=== PATIENT | female | born 1960 | race Two or more races ===

== ENCOUNTER 2017-09-25 13:35 | Outpatient (CLI) | payer OTHER ==
[~2017-09-25 13:35] MED LIST: NATALIZUMAB; ZOLOFT50 MG
== END 2017-09-25 13:52 | disposition home or self-care (01) ==
LOC: RAD 501 13:35
DX: M25.561 Pain in right knee (principal); M25.562 Pain in left knee; M79.604 Pain in right leg; M54.5 Low back pain

== ENCOUNTER 2017-12-21 10:13 | Outpatient (CLI) | payer OTHER | END 2017-12-21 10:15 | disposition home or self-care (01) | LOC: SONOGRAMA 10:13 | DX: E04.1 Nontoxic single thyroid nodule (principal) ==

== ENCOUNTER 2018-01-22 15:01 | Outpatient (CLI) | payer OTHER | END 2018-01-22 16:14 | disposition home or self-care (01) | LOC: RAD 501 15:01 | DX: M17.11 Unilateral primary osteoarthritis, right knee (principal); M25.561 Pain in right knee; M25.551 Pain in right hip ==

== ENCOUNTER 2018-04-11 11:31 | Outpatient (CLI) | payer OTHER | END 2018-04-11 12:11 | disposition home or self-care (01) | LOC: RAD 501 11:31 | DX: Z76.89 Persons encountering health services in other specified circumstances (principal); M17.11 Unilateral primary osteoarthritis, right knee; M79.604 Pain in right leg; M79.651 Pain in right thigh ==

== ENCOUNTER 2018-06-15 10:00 | Inpatient (IN) | payer OTHER ==
[~2018-06-15] VITALS: Ht 152.4 cm; Wt 5.0 kg
[2018-06-15] MEDS ORDERED: LEMTRADA12 MG/1.2 (12:58)
[2018-06-22] MEDS ORDERED: XARELTO10 MG PO (12:48)
[2018-06-22] MEDS ORDERED: ULTRACET PO (12:51)
== END 2018-06-22 14:35 | disposition home or self-care (01) | DRG 470 ==
LOC: SURH 06-19 09:45 → O/R 06-19 12:14 → SURG 06-20 15:06
PROVIDERS: Orthopaedic Surgery
PROC: 0SH Lower Joints, Insertion (ICD-10-PCS; 2018-06-19)
PROC: 0SRC0J9 Replacement of Right Knee Joint with Synthetic Substitute, Cemented, Open Approach (ICD-10-PCS; principal; 2018-06-19 09:45)
DX: M17.11 Unilateral primary osteoarthritis, right knee (principal); D62 Acute posthemorrhagic anemia; G35 Multiple sclerosis; Z79.52 Long term (current) use of systemic steroids

== ENCOUNTER 2018-06-18 07:51 | Outpatient (CLI) | payer OTHER ==
[~2018-06-18 07:51] MED LIST changes: +LEMTRADA12 MG/1.2
== END 2018-06-18 08:42 | disposition home or self-care (01) ==
LOC: LAB 07:51
DX: D64.89 Other specified anemias (principal)

== ENCOUNTER 2018-10-17 11:12 | Outpatient (CLI) | payer OTHER ==
[~2018-10-17 11:12] MED LIST changes: +ULTRACET PO; +XARELTO10 MG PO
== END 2018-10-17 11:32 | disposition home or self-care (01) ==
LOC: RAD 501 11:12
DX: M41.25 Other idiopathic scoliosis, thoracolumbar region (principal)

== ENCOUNTER 2018-11-23 08:35 | Day surgery (SDC) | payer OTHER ==
[~2018-11-23 08:35] MED LIST changes: +NEURONTIN300 MG PO; +XANAX0.25 MG PO; +ZOLOFT100 MG PO
== END 2018-11-23 17:30 | disposition home or self-care (01) ==
LOC: CIR.AMB 08:35
DX: M24.561 Contracture, right knee (principal); M24.552 Contracture, left hip; M24.551 Contracture, right hip

== ENCOUNTER 2019-09-09 10:23 | Outpatient (CLI) | payer OTHER | END 2019-09-09 14:58 | disposition home or self-care (01) | LOC: LAB 10:23 | DX: E55.9 Vitamin D deficiency, unspecified (principal); M85.88 Other specified disorders of bone density and structure, other site; E21.2 Other hyperparathyroidism; E88.89 Other specified metabolic disorders; M81.8 Other osteoporosis without current pathological fracture; E56.1 Deficiency of vitamin K; Z01.812 Encounter for preprocedural laboratory examination; Z01.810 Encounter for preprocedural cardiovascular examination; Z01.811 Encounter for preprocedural respiratory examination ==

== ENCOUNTER 2021-08-16 14:10 | Outpatient (CLI) | payer OTHER | END 2021-08-16 14:50 | disposition home or self-care (01) | LOC: ASH CLINIC 14:10 | PROVIDERS: ATTEND Orthopaedic Surgery | DX: U07.1 COVID-19 (principal); Z23 Encounter for immunization ==

== ENCOUNTER 2025-03-06 14:21 | Outpatient (CLI) | payer OTHER | END 2025-03-06 14:27 | disposition home or self-care (01) | LOC: LAB 14:21 | PROVIDERS: ATTEND Specialist | DX: L02.91 Cutaneous abscess, unspecified (principal) ==

== ENCOUNTER 2025-03-10 10:29 | Outpatient (CLI) | payer OTHER | END 2025-03-10 11:29 | disposition home or self-care (01) | LOC: WOUND MED 10:29 → WOUND CARE 10:29 → WOUND MED 11:29 | PROVIDERS: ATTEND Specialist | DX: S89.91XA Unspecified injury of right lower leg, initial encounter (principal); L97.912 Non-pressure chronic ulcer of unspecified part of right lower leg with fat layer exposed; I10 Essential (primary) hypertension | CPT/HCPCS: A4927; A6220; A6223; G0463 ==